=== PATIENT | female | born 1945 | race Caucasian/White ===

== ENCOUNTER 2025-02-25 09:25 | Outpatient (CLI) | payer MEDICARE | END 2025-02-25 09:26 | disposition home or self-care (01) | LOC: CSHCT 09:25 | PROVIDERS: ATTEND Student in an Organized Health Care Education/Training Program | DX: M54.12 Radiculopathy, cervical region (principal); M48.02 Spinal stenosis, cervical region; M48.03 Spinal stenosis, cervicothoracic region; M54.13 Radiculopathy, cervicothoracic region | CPT/HCPCS: 72125; 72128 ==